=== PATIENT | female | born 1995 | race Caucasian/White ===

== ENCOUNTER 2020-02-19 09:36 | Emergency (ER) | payer BC ==
[~2020-02-19] VITALS: Ht 157.5 cm; Wt 65.8 kg
[2020-02-19 09:43] VITALS: BP_SYST 142
[2020-02-19] MEDS ORDERED: ONDANSETRON 4 MG ODT TAB PO ONE (10:00)
[2020-02-19] MEDS ORDERED: IBUPROFEN 600 MG TABLET PO ONE (10:30)
[2020-02-19] MEDS ORDERED: traMADol HCL HCL 50 MG TABLET (ULTRAM) PO ONE (10:30)
[2020-02-19 10:33] VITALS: BP_SYST 142
== END 2020-02-19 10:34 | disposition home or self-care (01) ==
LOC: SED 09:36
DX: N94.6 Dysmenorrhea, unspecified (principal)
CPT/HCPCS: 81025; 99283; Q0162